=== PATIENT | male | born 1945 | race Caucasian/White ===

== ENCOUNTER 2017-05-14 08:03 | Outpatient (CLI) | payer MEDICARE ==
--- NOTE | 2017-05-14 11:32 | MRI ---
MRI CERVICLA SPINE WITHOUT CONTRAST: Date: 05/14/17 HISTORY: Cervical fusion. Spinal stenosis. Neck pain radiating down the right arm x2 months. COMPARISON: 04/03/14. TECHNIQUE: MRI cervical spine is performed without intravenous Gadolinium administration. Multisequential, multi planar imaging is performed. FINDINGS: Appropriate T1 marrow signal intensity of the cervical vertebra. Cervical spine vertebral body height is maintained. No fracture. Straightening of normal cervical lordosis due to patient positioning is noted. No MRI evidence of ligamentous injury. Visualized brain parenchyma, cervicomedullary junction, cervical cord, and the upper thoracic cord andrade ve a normal size and signal intensity. 1.2 x 0.8 cm T2 hyperintensity in the expected region of the right thyroid lobe. There is an addition al T2 hyperintensity in the right neck anterior to the carotid artery measuring 1.6 x 1.4 cm. The les ion anterior to the right carotid artery appears to have been present on the prior examination. C2-C3: No significant disc osteophyte complex. No significant central canal stenosis. Neural foramina are pa tent. C3-C4: Broad based disc osteophyte complex abuts the thecal sac. No significant central canal stenosis. Dege nerative changes bilateral vertebral joints and bilateral facet hypertrophy results in moderate to se anita bilateral foraminal narrowing. C4-C5: Broad based osteophyte ridge with a small left paracentral component. No significant central canal st enosis. Right neural and left neural foramen are patent. C5-C6: Broad based disc osteophyte ridge abuts the thecal sac. Mild central canal stenosis. Degenerative nicci nges in bilateral vertebral joints result in moderate bilateral foraminal narrowing. C6-C7: There is a broad based osteophyte ridge that abuts the thecal sac. Ventral subarachnoid space is effa kwan. Minimal flattening of the ventral cord. Mild central canal stenosis. No T2 hyperintensity in the cord. Mild bilateral foraminal narrowing. C7-T1: No significant disc osteophyte complex. No significant central canal stenosis. Mild bilateral foramin al narrowing. IMPRESSION: 1. Degenerative changes of the cervical spine as above. 2. T2 hyperintensity in the right neck. The possibility of a nonspecific cystic lesion, as well as a cystic lesion within the right thyroid lobe are suspected. Further evaluation with a thyroid ultraso und is recommended. POS: [facility]
== END 2017-05-14 08:04 | disposition home or self-care (01) ==
LOC: SCSMRI 08:03
PROVIDERS: ATTEND Anesthesiology Pain Medicine
DX: M48.02 Spinal stenosis, cervical region (principal); M47.892 Other spondylosis, cervical region; M89.8X8 Other specified disorders of bone, other site
CPT/HCPCS: 72141

== ENCOUNTER 2017-07-06 13:59 | Outpatient (CLI) | payer MEDICARE ==
--- NOTE | 2017-07-06 14:57 | RAD ---
SUPINE ABDOMEN: INDICATION: Recurrent kidney stones. Renal cysts. COMPARISON: Correlation is made to abdominal film of 10/22/16. FINDINGS: Tiny calcification overlying the upper pole of the left kidney is again seen. There is also a small calcific density overlying the upper pole of the right kidney measuring in the 2-3 mm range. There i s bowel content overlying the right kidney, and this could potentially represent bowel content. No other urinary tract calcification identified. Phlebolith calcifications in the peripheral pelvis are unchanged. IMPRESSION: Tiny calcifications overlie the upper poles of both kidneys. Overlying bowel content obscures detail . POS: [facility]
--- NOTE | 2017-07-06 15:05 | ULT ---
RENAL ULTRASOUND: INDICATION: Kidney stones. Renal cysts. COMPARISON: Comparison is made to renal ultrasound exam dated 07/23/16. FINDINGS: The large cyst inferior pole right kidney is again noted. This cyst measures up to 8 cm and is uncha nged in appearance from the prior study. The right kidney is otherwise unremarkable. No hydronephro sis. The right kidney is measured at 12 cm length. The left kidney appears unremarkable and measures 12.7 cm length. Bladder is mildly distended and ap pears unremarkable. Tiny echogenic foci seen in both kidneys would be consistent with small renal calculi which were also confirmed on a CT of 10/15/16. IMPRESSION: 1. Large cyst inferior pole right kidney appears stable by ultrasound. 2. Evidence of tiny renal calculi which were better seen on prior CT. 3. Renal ultrasound otherwise unremarkable. POS: [facility]
== END 2017-07-06 14:00 | disposition home or self-care (01) ==
LOC: SCSULT 13:59
PROVIDERS: ATTEND Urology
DX: Z12.5 Encounter for screening for malignant neoplasm of prostate (principal); N20.0 Calculus of kidney; N28.1 Cyst of kidney, acquired; N40.0 Benign prostatic hyperplasia without lower urinary tract symptoms
CPT/HCPCS: 36415; 74018; 76770; 80048; 80076; 81001; 84270; 84403; 85014; 85018; 87086; G0103

== ENCOUNTER 2017-10-09 08:47 | Outpatient (CLI) | payer MEDICARE ==
--- NOTE | 2017-10-09 11:01 | MRI ---
MRI LUMBAR SPINE NONCONTRAST: History: Low back pain. Radiculopathy, right greater than left. FINDINGS: Images including the retroperitoneum show large cysts projecting from the cortex of the right kidney. The conus medullaris has a normal appearance. Desiccation of all of the intervertebral discs with Sc hmorl's nodes and discogenic endplate changes. Degenerative changes are partially visualized, lower l umbar spine. T12-L1: Osteophytosis. Central canal and neural foramina are patent. L1-2: Disc space narrowing. Posterior disc bulge and circumferential degenerative changes. Mild steno sis of the central canal and each neural foramen. L2-3: Mild disc space narrowing. Posterior disc bulge and circumferential degenerative changes with m oderate stenosis of the central canal and mild to moderate stenosis of each neural foramen. L3-4: Disc space narrowing. Posterior disc bulge and circumferential degenerative changes with mild s tenosis of the central canal and moderate stenosis of each neural foramen. L4-5: Disc space narrowing. Posterior disc bulge and circumferential degenerative changes with modera te stenosis of the central canal and severe stenosis of each neural martínez. L5-S1: Posterior disc bulge. Thecal sac remains patent. Degenerative changes with moderate bilateral foraminal stenosis, left greater than right. IMPRESSION: Prominent multilevel degenerative changes throughout the lumbar spine as detailed above. Stenoses are most severe at each neural foramen at the L4-5 level. Clinical correlation regarding each L4 dermato me is required. POS: [facility]
== END 2017-10-09 08:48 | disposition home or self-care (01) ==
LOC: TBSIIMAG 08:47
PROVIDERS: ATTEND Surgery
DX: M47.27 Other spondylosis with radiculopathy, lumbosacral region (principal); M47.26 Other spondylosis with radiculopathy, lumbar region; M99.83 Other biomechanical lesions of lumbar region
CPT/HCPCS: 72148

== ENCOUNTER 2017-11-12 15:24 | Outpatient (CLI) | payer MEDICARE ==
[2017-11-12 16:17] LABS: Hemoglobin 14.6 g/dL (14.0-18.0); Mean Corpuscular HGB CONC 35.2 g/dL (32.0-36.0); Mean Corpuscular Hemoglobin 31.5 pg (27.0-31.0); Mean Corpuscular Volume 89.3 fL (78.0-98.0); Mean Platelet Volume 9.5 fL (7.4-10.4); Platelet Count 144 thou/uL (130-400); RBC Distribution Width 12.7 % (11.5-14.5); Red Blood Cell (RBC) Count 4.63 mill/uL (4.70-6.10); White Blood Cell (WBC) Count 8.1 thou/uL (4.8-10.8)
[2017-11-12 16:21] LABS: INR-International Normal Ratio 1.1; Prothrombin Time 14.6 SEC (12.0-14.7)
[2017-11-12 16:22] LABS: PTT 29.7 SEC (22.9-36.1)
[2017-11-12 16:38] LABS: Anion Gap 12 mmol/L (10-20); BUN (Urea Nitrogen) 21 mg/dL (8.4-25.7); Calc. Creatinine Clearance 0 mL/min (70-130); Calcium 9.2 mg/dL (7.8-10.44); Carbon Dioxide 29 mmol/L (23-31); Chloride 105 mmol/L (98-107); Estimated GFR-MDRD 83; Glucose 178 mg/dL (83-110); Potassium 3.9 mmol/L (3.5-5.1); Sodium 142 mmol/L (136-145)
== END 2017-11-12 15:25 | disposition home or self-care (01) ==
LOC: LABBT 15:24
PROVIDERS: ATTEND Surgery
DX: Z01.818 Encounter for other preprocedural examination (principal); M48.061 Spinal stenosis, lumbar region without neurogenic claudication; M54.16 Radiculopathy, lumbar region
CPT/HCPCS: 80048; 85027; 85610; 85730; 93005; 93010

== ENCOUNTER 2017-11-19 09:43 | Day surgery (SDC) | payer MEDICARE ==
[2017-11-12 16:09] VITALS: BMI 28.7
[2017-11-19] MEDS ORDERED: Clindamycin/D5W 900 mg/50 ml Premix Bag ONE ×2 (10:14→18:35)
[2017-11-19] MEDS ORDERED: Levofloxacin 500 mg/D5W 100 ml Premix Bag ONE (10:15)
[2017-11-19] MEDS ORDERED: Sodium Chloride 0.9% 10 ML ONE (10:29)
[2017-11-19] MEDS ORDERED: Thrombin 5000 UNITS/5 ML VIAL ONE ×2 (10:29→13:52)
[2017-11-19] MEDS ORDERED: Bacitracin Zinc Ointment 30 gm TUBE ONE (10:32)
[2017-11-19] MEDS ORDERED: Midazolam HCl 2 mg/2 ml Vial ONE (10:59)
[2017-11-19] MEDS ORDERED: Fentanyl 100 MCG/2 ML VIAL ONE ×3 (12:00→16:00)
[2017-11-19] MEDS ORDERED: Fentanyl 250 MCG/5 ML VIAL ONE (12:37)
[2017-11-19] MEDS ORDERED: PHENYLEPHRINE-NS 100 MCG/ML 10 ML SYRINGE ONE ×2 (13:35→14:52)
[2017-11-19] MEDS ORDERED: Promethazine HCl 25 MG/ML VIAL SLOW IVP PRN (13:51)
[2017-11-19] MEDS ORDERED: Meperidine HCl/PF 25 MG/ML VIAL SLOW IVP PRN (13:51)
[2017-11-19] MEDS ORDERED: Ondansetron HCl/PF 4 MG/2 ML Vial IVP PRN (13:51)
[2017-11-19] MEDS ORDERED: PROPOFOL 200 MG/20 ML VIAL ONE (14:52)
[2017-11-19] MEDS ORDERED: Dexamethasone 20 MG/5 ML VIAL ONE (14:52)
[2017-11-19] MEDS ORDERED: Ondansetron HCl/PF 4 MG/2 ML Vial ONE (14:52)
[2017-11-19] MEDS ORDERED: ePHEDrine/0.9% NaCl/PF SYRINGE 50 mg/10 ml ONE (14:52)
[2017-11-19] MEDS ORDERED: Ketorolac Tromethamine 30 MG/ML VIAL ONE (14:52)
[2017-11-19] MEDS ORDERED: Lidocaine 1% PF 5 ML VIAL ONE (14:52)
[2017-11-19] MEDS ORDERED: Promethazine HCl 25 MG/ML VIAL IM PRN (15:12)
[2017-11-19] MEDS ORDERED: Milk Of Magnesia 30 ML UDCUP PO PRN (15:12)
[2017-11-19] MEDS ORDERED: traMADol HCl 50 MG TAB PO PRN (15:12)
[2017-11-19] MEDS ORDERED: Bisacodyl 10 MG SUPP PR PRN (15:12)
[2017-11-19] MEDS ORDERED: Mag-Al 1200 mg/1200 mg/30 ML UDCUP PO PRN (15:12)
[2017-11-19] MEDS ORDERED: Acetaminophen 325 MG TAB PO PRN (15:12)
[2017-11-19] MEDS ORDERED: Fleet Enema 133 ML BOT PR PRN (15:12)
[2017-11-19] MEDS ORDERED: HYDROmorphone 2 MG/ML VIAL ONE ×2 (15:26→17:03)
[2017-11-19] MEDS: Clindamycin/D5W 900 MG in Premix Bag 1 BAG IVPB SCH (20:07)
[2017-11-19] MEDS: Gabapentin 300 MG CAP PO SCH (20:52)
[2017-11-19] MEDS: HYDROcodone/Acetaminophen 7.5/325 mg Tablet PO PRN (20:52)
[2017-11-19] MEDS: tiZANidine HCl 4 MG TAB PO PRN (20:52)
[2017-11-19] MEDS ORDERED: traZODone HCl 150 MG TAB PO SCH (21:00)
[2017-11-19] MEDS ORDERED: TRAZODONE HCL 300 MG PO SCH (21:00)
[2017-11-19] MEDS ORDERED: Zolpidem Tartrate 5 MG TAB PO SCH (21:00)
[2017-11-19] MEDS: Primidone 50 MG TAB PO SCH (21:58)
[2017-11-19] MEDS: Sodium Chloride 0.9% 1,000 ML IV SCH (23:04)
[2017-11-20] MEDS: HYDROcodone/Acetaminophen 7.5/325 mg Tablet PO PRN ×3 (00:42→12:41)
[2017-11-20] MEDS: Clindamycin/D5W 900 MG in Premix Bag 1 BAG IVPB SCH (01:24)
[2017-11-20] MEDS ORDERED: diphenhydrAMINE 50 MG/ML VIAL IVP SCH (03:30)
[2017-11-20] MEDS ORDERED: Levothyroxine Sodium 50 MCG TAB PO SCH (06:00)
[2017-11-20] MEDS: Sodium Chloride 0.9% 1,000 ML IV SCH (07:50)
[2017-11-20] MEDS ORDERED: Glimepiride 2 MG TAB PO SCH (08:00)
[2017-11-20] MEDS: Gabapentin 300 MG CAP PO SCH (08:41)
[2017-11-20] MEDS: Primidone 50 MG TAB PO SCH (08:41)
[2017-11-20] MEDS: tiZANidine HCl 4 MG TAB PO PRN (08:46)
[2017-11-20] MEDS ORDERED: (Vortioxetine Hydrobromide [Trintellix] 20 MG) PO SCH (09:00)
[2017-11-20] MEDS ORDERED: Loratadine/Pseudoephedrine 10/240 mg Tablet PO SCH (09:00)
[2017-11-20] MEDS ORDERED: Prevnar 13-Val Conj/PF 0.5 ML SYRINGE IM ONE (09:00)
[2017-11-20] MEDS ORDERED: (Vortioxetine Hydrobromide [Trintellix] 10 MG) PO SCH (09:00)
[2017-11-20] MEDS ORDERED: Folic Acid 1 MG TAB PO SCH (09:00)
[2017-11-20] MEDS ORDERED: Amlodipine 5 MG TAB PO SCH (09:00)
[2017-11-20] MEDS ORDERED: Tamsulosin HCl 0.4 MG CAP PO SCH (09:00)
[2017-11-20 12:26] VITALS: BP 96/58; TEMP 97.9
[2017-11-20] MEDS: TESTOSTERONE TOP SCH (13:48)
--- NOTE | 2017-11-20 15:27 | PRG ---
DATE OF SERVICE: 11/20/2017 Mr. Kenyon is postoperative day 1 from L2-L5 laminectomy. He has had improvement in his leg pain. Th e issue we are facing at this point is to control a muscle spasm and perioperative site pain. Anthony thornton work on this. Should he continue to do well and meet criteria, we will plan dismissal.
--- NOTE | 2017-11-20 16:43 | OP ---
DATE OF SURGERY: 11/19/2017 WOUND TYPE: Type 1 wound. SURGEON: Serafin Britton M.D. INTERNATIONAL PROJECT MANAGER: Moreno Adler PA-C. PREPROCEDURE DIAGNOSIS: Multilevel lumbar stenosis with low back and leg pain. POSTPROCEDURE DIAGNOSIS: Multilevel lumbar stenosis with low back and leg pain. PROCEDURES: L2-L3, L3-L4, L4-L5 laminectomies, partial facetectomies, foraminotomies, L2, L3, L4, L5 nerve roots. DESCRIPTION OF PROCEDURE: After informed consent was obtained from the patient, the patient was brou ght to OR. Proper patient pause and identification was carried out. He was placed in excellent endo tracheal anesthesia and positioned prone on the OR table. All appropriate points were padded. We id entified the L2, L3, L4, L5 dorsal spines. A linear teressa was made over this region. This area was s terilely cleansed, prepared and draped. Proper patient pause and identification was carried out. Th e wound was then opened with a combination of sharp, monopolar and blunt dissection. The L2, L3, L4, L5 dorsal spines and lamina were exposed. Localization film confirmed our area of interest. We the n performed an L2, L3, L4, L5 laminectomies, partial facetectomies and foraminotomies with excellent decompression of the common dural tube and the L2, L3, L4, L5 nerve roots. Copious irrigation occurr ed throughout as did maximizing hemostasis. The wound was then closed in anatomic layers followed by sprinkling of vancomycin powder. The patient then emerged from anesthesia.
== END 2017-11-20 13:12 | disposition home or self-care (01) ==
LOC: SDC 09:43 → SURG A 17:56 → SDC 11-20 13:12
PROVIDERS: ATTEND Surgery
PROC: 01NB0ZZ Release Lumbar Nerve, Open Approach (ICD-10-PCS; principal; 2017-11-19)
DX: M48.061 Spinal stenosis, lumbar region without neurogenic claudication (principal); M54.16 Radiculopathy, lumbar region; I10 Essential (primary) hypertension; E11.9 Type 2 diabetes mellitus without complications; K21.9 Gastro-esophageal reflux disease without esophagitis; K58.9 Irritable bowel syndrome, unspecified; F41.8 Other specified anxiety disorders; G62.9 Polyneuropathy, unspecified; Z79.82 Long term (current) use of aspirin; Z79.899 Other long term (current) drug therapy; Z88.0 Allergy status to penicillin; Z88.8 Allergy status to other drugs, medicaments and biological substances
CPT/HCPCS: 36416; 76001; 90471; 90670; A4216; G0009; J0131; J1100; J1170; J1885; J1956; J2001; J2250; J2270; J2405; J2704; J3010; J3370; J3490

== ENCOUNTER 2018-02-23 19:06 | Emergency (ER) | payer MEDICARE ==
[2018-02-23 19:52] LABS: #Eosinphils 0.3 thou/uL (0.0-0.7); #Lymphocytes 1.8 thou/uL (1.20-3.40); #Neutrophils 8.1 thou/uL (1.40-6.50); %Basophils 0.2 % (0.0-1.0); %Eosinophils 2.4 % (0.0-10.0); %Lymphocytes 15.8 % (21.0-51.0); %Monocytes 8.6 % (0.0-10.0); Hemoglobin 14.1 g/dL (14.0-18.0); Mean Corpuscular HGB CONC 33.8 g/dL (32.0-36.0); Mean Corpuscular Hemoglobin 29.7 pg (27.0-31.0); Mean Corpuscular Volume 87.7 fL (78.0-98.0); Mean Platelet Volume 9.7 fL (7.4-10.4); Platelet Count 172 thou/uL (130-400); RBC Distribution Width 12.3 % (11.5-14.5); Red Blood Cell (RBC) Count 4.74 mill/uL (4.70-6.10)
[2018-02-23 20:15] LABS: Anion Gap 12 mmol/L (10-20); BUN (Urea Nitrogen) 14 mg/dL (8.4-25.7); Calc. Creatinine Clearance 0 mL/min (70-130); Calcium 9.6 mg/dL (7.8-10.44); Carbon Dioxide 28 mmol/L (23-31); Chloride 98 mmol/L (98-107); Estimated GFR-MDRD 70; Glucose 528 mg/dL (83-110); Sodium 134 mmol/L (136-145)
[2018-02-23] MEDS ORDERED: Lidocaine 4% Cream 5 GM TUBE w/ Tegaderm ONE (21:53)
[2018-02-23] MEDS ORDERED: Clindamycin 150 MG CAP PO SCH (23:45)
== END 2018-02-24 00:18 | disposition home or self-care (01) ==
LOC: ERS 19:06
DX: E11.65 Type 2 diabetes mellitus with hyperglycemia (principal); J32.9 Chronic sinusitis, unspecified; E11.40 Type 2 diabetes mellitus with diabetic neuropathy, unspecified; I10 Essential (primary) hypertension; F41.9 Anxiety disorder, unspecified; F32.9 Major depressive disorder, single episode, unspecified
CPT/HCPCS: 10060; 36416; 80048; 85025; 96360; 96361

== ENCOUNTER 2018-03-17 10:33 | Emergency (ER) | payer MEDICARE ==
--- NOTE | 2018-03-17 11:48 | RAD ---
RIGHT CLAVICLE TWO VIEWS: HISTORY: Pain. COMPARISON: MRI from 07/20/2017. FINDINGS: There appears to be a prior acromioplasty. There is also distal clavicular osteolysis. There is oss ification along the acromioclavicular ligaments. These are unchanged findings. There is also some o ssification in the coracoclavicular ligament. IMPRESSION: Chronic findings. No acute abnormality. POS: [facility]
--- NOTE | 2018-03-17 12:23 | RAD ---
PORTABLE UPRIGHT FRONTAL CHEST RADIOGRAPH: 03/17/2018 HISTORY: Fall. COMPARISON: None. FINDINGS: There is marked widening of the acromioclavicular interspace on the right. There is also widening of the right coracoclavicular interspace. These findings suggest a grade 3 AC joint injury, possibly a cute. Clinical correlation is essential. There is cervical spine postoperative hardware. There is no pneumothorax or pleural fluid and no foc al consolidation or alveolar edema. IMPRESSION: Age indeterminate, possibly acute, grade 3 acromioclavicular joint injury on the right. Clinical cor relation is required. POS: [facility]
== END 2018-03-17 12:07 | disposition home or self-care (01) ==
LOC: ERS 10:33
DX: S43.101A Unspecified dislocation of right acromioclavicular joint, initial encounter (principal); G47.30 Sleep apnea, unspecified; E11.40 Type 2 diabetes mellitus with diabetic neuropathy, unspecified; I10 Essential (primary) hypertension; F41.9 Anxiety disorder, unspecified; F32.9 Major depressive disorder, single episode, unspecified; W19.XXXA Unspecified fall, initial encounter
CPT/HCPCS: 71045

== ENCOUNTER 2018-04-21 08:56 | Outpatient (CLI) | payer MEDICARE ==
--- NOTE | 2018-04-21 12:07 | ULT ---
ULTRASOUND OF RIGHT ELBOW: History: Evaluation for biceps tendon tear. The patient was unable to undergo MR study. FINDINGS: Real-time imaging of the distal biceps tendon was performed. The tendon was identified. It is slightl y thickened in appearance but it appears to have a normal attachment on the radial tuberosity. No sig ns of any complete tear. I do not see any fluid or edema change in this area. Imaging was also perfor med to the myotendinous area and I do not see any definite fluid or other signs of acute injury in th is area. IMPRESSION: Mildly thickened but intact appearing distal biceps tendon. POS: [facility]
== END 2018-04-21 08:57 | disposition home or self-care (01) ==
LOC: SCSULT 08:56
PROVIDERS: ATTEND Orthopaedic Surgery Hand Surgery
DX: S46.211A Strain of muscle, fascia and tendon of other parts of biceps, right arm, initial encounter (principal)
CPT/HCPCS: 76999

== ENCOUNTER 2018-05-13 15:33 | Outpatient (CLI) | payer MEDICARE ==
[2018-05-13 16:21] LABS: Estimated GFR-MDRD - POC Greater than 90
--- NOTE | 2018-05-13 17:46 | RAD ---
FOUR VIEWS LUMBAR SPINE INCLUDING AP, LATERAL, FLEXION AND EXTENSION VIEWS LUMBAR SPINE: 05/13/18 HISTORY: Back pain for four months. Four views lumbar spine demonstrate four nonribbearing lumbar type vertebrae. Disc space height loss is seen at L1-2, L2-3, L3-4 and L4-5. Vacuum disc changes also seen at L3-4. Extensive anterior osteo phytes seen. No evidence of acute fractures or bony lesions seen. IMPRESSION: Multilevel lumbar changes of spondylosis. No acute lumbar spine abnormality seen. The patient has had previous laminectomies involving the L3, L4 and L5 levels. POS: [facility]
--- NOTE | 2018-05-13 18:12 | MRI ---
PRE AND POSTCONTRAST ENHANCED MRI IMAGES LUMBAR SPINE: 05/13/18 COMPARISON: Comparison made to previous exam of noncontrast enhanced MRI images of the lumbar spine from 10/09/17. Multiplanar, multisequence pre and postcontrast enhanced MRI images lumbar spine obtained. The patient also received a total of 19 mL of Multihance given IV. Pre and postcontrast enhanced MRI images of the lumbar spine obtained. RADIOGRAPHIC FINDINGS: T12-L1: There is facet and ligamentum flavum hypertrophy. No significant degree of central or neural foraminal narrowing seen. L1-2: Some disc desiccation seen. There is a broad based disc bulge with bilateral facet and ligament um flavum hypertrophy. This results in mild central and lateral recess stenosis. This has not signifi cantly changed since the previous exam. L2-3: There is disc desiccation seen. There is a broad based disc bulge with bilateral facet hypertro phy. The patient has had previous L3 laminotomy changes. The central canal is patent. L3-4: The patient has had a previous L3 and L4 laminotomies. The L3-4 central canal is patent, slight ly increased AP diameter compared to the predecompression exam from 10/09/17. No significant degree of central stenosis seen. The neural foramen is patent. The patient has had extensive posterior postoperative surgical enhancement extending from the posteri or aspect of the L3, L4, and L5 levels. L4-5: Disc desiccation seen. There is a broad based disc bulge with bilateral facet hypertrophy. This does not result in a significant degree of central stenosis. There has been an interval posterior de compression with increased diameter of the spinal canal. There is moderate bilateral neural foraminal narrowing at L4-5 due to facet hypertrophic changes. L5-S1: Bilateral facet hypertrophy is seen. No significant degree of central stenosis seen. Moderate bilateral neural foraminal narrowing seen. Incidentally noted large right renal cortical cyst or cystic lesion is present unchanged since the exam. IMPRESSION: Multilevel lower lumbar laminotomy changes with decompression of the L3-4 and L4-5 central spinal lev els. No evidence of recurrent disc herniations or increasing neural foraminal narrowing seen. previou s areas of neural foraminal narrowing in the lower lumbar region are unchanged. POS: [facility]
== END 2018-05-13 15:34 | disposition home or self-care (01) ==
LOC: SCSMRI 15:33
PROVIDERS: ATTEND Surgery
DX: M54.16 Radiculopathy, lumbar region (principal); M48.061 Spinal stenosis, lumbar region without neurogenic claudication; M47.26 Other spondylosis with radiculopathy, lumbar region; Z98.890 Other specified postprocedural states
CPT/HCPCS: 72120; 72158; 82565

== ENCOUNTER 2018-05-21 11:12 | Day surgery (SDC) | payer MEDICARE ==
[2018-05-20 16:42] VITALS: BMI 28.5
[2018-05-21] MEDS ORDERED: Fentanyl 100 MCG/2 ML VIAL ONE (12:09)
[2018-05-21] MEDS ORDERED: Midazolam HCl 2 mg/2 ml Vial ONE (12:28)
--- NOTE | 2018-05-21 14:17 | MRI ---
MRI RIGHT ELBOW WITH AND WITHOUT CONTRAST: HISTORY: M75.21, biceps tendinitis of the right upper extremity. S46.219A, biceps tendon tear. COMPARISON: None. FINDINGS: The exam was done as a mass protocol and not an internal derangement protocol. No solid mass is appr eciated. Mild tendinosis of the biceps tendon. No bicipital or radial bursitis. Bones: No fracture. No malalignment. No marrow edema. No marrow infiltrative process. The triceps tendon is intact. Muscle signal and bulk are normal. Large cyst, inferior pole, right kidney. Mild lateral epicondylitis and low-grade thickening of the common extensor tendon. IMPRESSION: 1. Low-grade tendinosis of the biceps tendon without tear. 2. No bicipital or radial bursitis. 3. Mild lateral epicondylitis. 4. Nonenhancing cyst, inferior pole, right kidney. POS: [facility]
== END 2018-05-21 14:35 | disposition home or self-care (01) ==
LOC: SDC/OP 11:12
PROVIDERS: ATTEND Orthopaedic Surgery Hand Surgery
DX: M75.21 Bicipital tendinitis, right shoulder (principal); M77.11 Lateral epicondylitis, right elbow; G56.21 Lesion of ulnar nerve, right upper limb; S46.819A Strain of other muscles, fascia and tendons at shoulder and upper arm level, unspecified arm, initial encounter; E11.9 Type 2 diabetes mellitus without complications; F32.9 Major depressive disorder, single episode, unspecified; N52.9 Male erectile dysfunction, unspecified; Z79.82 Long term (current) use of aspirin; Z79.84 Long term (current) use of oral hypoglycemic drugs; Z79.899 Other long term (current) drug therapy; Z88.0 Allergy status to penicillin
CPT/HCPCS: 93005; 93010; J2250; J3010

== ENCOUNTER 2018-06-08 06:41 | Day surgery (SDC) | payer MEDICARE ==
[2018-06-07 11:28] VITALS: BMI 28.5
[2018-06-08] MEDS ORDERED: Bacitracin Zinc Ointment 30 gm TUBE ONE (08:12)
[2018-06-08] MEDS ORDERED: Bupivacaine PF 0.5% 30 ML VIAL ONE ×2 (08:12→10:49)
[2018-06-08] MEDS ORDERED: Sodium Chloride 0.9% 10 ML ONE (08:12)
[2018-06-08] MEDS ORDERED: Betamet Acet/Betamet Na Ph 30 MG/5 ML VIAL ONE ×2 (08:12→09:05)
[2018-06-08] MEDS ORDERED: Fentanyl 100 MCG/2 ML VIAL ONE (08:25)
[2018-06-08] MEDS ORDERED: Midazolam HCl 2 mg/2 ml Vial ONE (08:26)
[2018-06-08] MEDS ORDERED: Ketorolac Tromethamine 30 MG/ML VIAL ONE (11:28)
[2018-06-08] MEDS ORDERED: PROPOFOL 200 MG/20 ML VIAL ONE (12:48)
[2018-06-08] MEDS ORDERED: PHENYLEPHRINE-NS 100 MCG/ML 10 ML SYRINGE ONE (12:48)
[2018-06-08] MEDS ORDERED: Lidocaine 1% PF 5 ML VIAL ONE (12:48)
[2018-06-08] MEDS ORDERED: Ondansetron PF 4 MG/2 ML Vial ONE (12:48)
[2018-06-08] MEDS ORDERED: HYDROcodone/Acetaminophen 5/325 mg Tablet ONE (12:58)
--- NOTE | 2018-06-08 23:16 | OP ---
DATE OF PROCEDURE: 06/08/2018 PREOPERATIVE DIAGNOSES: 1. Right olecranon bursitis. 2. Right lateral epicondylitis. 3. Right biceps tendon muscle area pain, mid muscle belly. 4. 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 POSTOPERATIVE DIAGNOSES: 1. Right olecranon bursitis. 2. Right lateral epicondylitis. 3. Right biceps tendon muscle area pain, mid muscle belly. 4. 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 FINDINGS: Very tight constriction and scarring of the ulnar nerve at the two heads of the flexor tendon origin, within the cubital tunnel with scarring persists from the previous surgery; once we passed the cubital tunnel, began against the intermuscular septum and high at the intermuscular septum was compressed again. Hourglass formation was seen in three of these four sites, greatest at the old scar of the cubital tunnel. PROCEDURES PERFORMED: 1. Right biceps muscle belly biopsy. 2. Right biceps tendon injection with 2 of Celestone and 1 of Marcaine, right lateral epicondylitis injection with 2 of Celestone and 1 of Marcaine. 3. Right radical olecranon bursectomy. 4. Right submuscular ulnar nerve transposition after radial nerve release at the site listed above. SPECIMENS: Sent to the lab, bursitis/thickened olecranon bursa. TOURNIQUET TIME: 9 minutes. ESTIMATED BLOOD LOSS: Less than or equal to 20 mL. INDICATION: The patient had pain marked in lateral epicondyle without evidence of radial tunnel syndrome, marked tenderness over point in the midportion of biceps muscle distal 1/3 and marked tenderness over the biceps tendon as it entered into antecubital fossa. He had a positive MRI showing no abnormalities of the biceps muscle or tendon junction except for mild tendinosis at the level of his exam tenderness, lateral epicondylitis that was moderate without a rupture, and he had previous cubital tunnel diagnosis on the EMG, did not resolve with conservative care. DESCRIPTION OF PROCEDURE: After successful general LMA technique, the limb was prepped and draped. The patient had the time-out done appropriately and then identified the areas. His arm was prepped including the entire lateral chest wall, and note, sterile tourniquet will be applied, but first, we performed the injection in the two sites, first the biceps tendon, we identified the tendon, made sure we could identify where the pulse was located and stay way from that. I entered the tendon proper and then once we felt some resistance, we withdrew the syringe following the blood, so we injected the solution. The pulse did not diminish. We then identified the anterior portion of the lateral epicondyle. The patient was most tender preop and in clinic, gave the injection here, divided in equal between this site and the direct mid-lateral site, and this will hopefully give him much relief. We then placed the sterile tourniquet high in the arm above the area. We identified where the biceps muscle was tender, made a zigzag 2 cm incision of the biceps muscle slightly more lateral than medial, dissected down to the junction of the brachialis and biceps tendon, and we saw some scarring in this area consistent with hypertrophic fascia, which we excised and sent to lab. We also saw some thickened muscle underneath this, which we excised and sent to lab. We deflated the tourniquet, and then injected the midline cubital tunnel incision with Marcaine 20 mL and then came back and closed the wound with the tourniquet deflated at the biopsy site with a running 4-0 Monocryl and interrupted 4-0 nylon. Specimens were then sent to lab during this time. We exsanguinated the limb with approximately 7 minutes of deflation time, and then, at this time, inflated to 250 mmHg pressure, began with the arm abduct and the elbow flexed, and using a burn pack for stability, the incision through the cubital tunnel. It was normal in the midline, distal to the olecranon prominence, went medial by 5 mm to avoid electrolyte problems and back midline. We then carried the skin, subcutaneous tissue, some very thick olecranon bursa, and then slowly this from the ulnar nerve to the lateral gutter. We then removed the lateral gutter base and protected all the nerve and its antebrachial cutaneous associated flexor branches. We identified the branch protected them throughout the entire dissection during this time, and then we have identified the ulnar nerve approximately 8 cm proximal to the olecranon tip. We then dissected proximally another 5 cm and then began to separate the ulnar where there was very tight. On constriction of the fascia against the triceps on the intermuscular septum at the carpal point, very tight with intermuscular septum inserted, very tight in the cubital tunnel remnant, and then very tight adductor at the two heads of the flexor tendons. We then performed enough dissection to free the nerve, this included the use of DeBakey because of the tight tunnel. Once the tunnel was free, we then removed the intermuscular septum over 8 cm area and protected all nerve completed easily it could be translocated over the medial condyle into the middle of the flexor pronator group origin. The nerve was freed along with the blood vessel, all scar was removed, we then made a Z-plasty with the longus limb being the limb just over the cubital tunnel of the flexor pronator origin, translocated this, and then placed the nerve in the defect. We gently closed the musculotendinous junction area over the nerve. After placing 4 mL to 5 mL of Celestone, closed the fat with interrupted [id number] #1 Ethibond. The nerve was easily all protected, did not show any evidence of constriction in full extension and full flexion. Tourniquet deflated. We obtained hemostasis. We then closed the incision for the cubital tunnel using a running 4-0 Monocryl. Then, over this, we placed Mastisol with Steri-Strips, dry, Adaptic, and 4x4s, Kerlix, and adapter Bacitracin over the biceps incision. He left operation with long-arm splint applied with the arm at -60 degrees from full extension. Previous procedure, long-arm splint application alone. Job ID: [id number]
== END 2018-06-08 13:20 | disposition home or self-care (01) ==
LOC: SDC 06:41
PROVIDERS: ATTEND Orthopaedic Surgery Hand Surgery
PROC: 3E0U33Z Introduction of Anti-inflammatory into Joints, Percutaneous Approach (ICD-10-PCS; principal; 2018-06-08)
PROC: 3E0U3BZ Introduction of Anesthetic Agent into Joints, Percutaneous Approach (ICD-10-PCS; 2018-06-08)
PROC: 3E0U3BZ Introduction of Anesthetic Agent into Joints, Percutaneous Approach (ICD-10-PCS; 2018-06-08)
PROC: 3E0U33Z Introduction of Anti-inflammatory into Joints, Percutaneous Approach (ICD-10-PCS; 2018-06-08)
PROC: 0KB70ZX Excision of Right Upper Arm Muscle, Open Approach, Diagnostic (ICD-10-PCS; 2018-06-08)
PROC: 01N40ZZ Release Ulnar Nerve, Open Approach (ICD-10-PCS; 2018-06-08)
PROC: 0MB30ZZ Excision of Right Elbow Bursa and Ligament, Open Approach (ICD-10-PCS; 2018-06-08)
DX: G56.21 Lesion of ulnar nerve, right upper limb (principal); M77.8 Other enthesopathies, not elsewhere classified; M77.11 Lateral epicondylitis, right elbow; M70.21 Olecranon bursitis, right elbow; I10 Essential (primary) hypertension; F32.9 Major depressive disorder, single episode, unspecified; F41.9 Anxiety disorder, unspecified; E11.40 Type 2 diabetes mellitus with diabetic neuropathy, unspecified; K21.9 Gastro-esophageal reflux disease without esophagitis; Z79.84 Long term (current) use of oral hypoglycemic drugs; Z79.82 Long term (current) use of aspirin; Z79.899 Other long term (current) drug therapy; Z88.0 Allergy status to penicillin
CPT/HCPCS: 88305; J0702; J1885; J2250; J3010; J3370; J3490; S0020

== ENCOUNTER 2018-07-21 08:05 | Outpatient (CLI) | payer MEDICARE ==
--- NOTE | 2018-07-21 08:42 | RAD ---
Abdomen one view HISTORY: Renal stones. Follow-up. COMPARISON: 07/06/2017. FINDINGS: Gas and stool throughout the colon and rectum. Partial obscuration of the renal outlines. A small rounded hyperdensities projecting over the superior pole the right kidney is unchanged. The hyperdensity projecting over the superior pole of the left kidney is not reliably demonstrated, altho ugh it could be obscured. Phleboliths over the pelvis are unchanged. Degenerative changes of the hips and lumbar spine. Postope rative changes lumbar spine. IMPRESSION: Small calcification over right upper renal pole is stable. The density previously seen ov er the superior pole of the left renal shadow is not evident on today's study. Possibly obscured or interval passage. Other findings are stable.
[2018-07-21 09:02] LABS: Hemoglobin 13.8 g/dL (14.0-18.0)
[2018-07-21 09:12] LABS: Anion Gap 12 mmol/L (10-20); BUN (Urea Nitrogen) 15 mg/dL (8.4-25.7); Calc. Creatinine Clearance 0 mL/min (70-130); Calcium 9.1 mg/dL (7.8-10.44); Carbon Dioxide 27 mmol/L (23-31); Chloride 106 mmol/L (98-107); Estimated GFR-MDRD Greater than 90; Glucose 136 mg/dL (83-110); Potassium 3.7 mmol/L (3.5-5.1); Sodium 141 mmol/L (136-145)
[2018-07-21 09:13] LABS: Bilirubin Negative (Negative); Blood, Urine Negative (Negative); Clarity Clear (Clear); Glucose, Urine (Dipstick) >=1000 mg/dL (Negative); Leukocyte Negative (Negative); Nitrite Negative (Negative); Protein, Urine (Dipstick) Negative (Neg-Trace); Urobilinogen 0.2 mg/dL (0.2-1.0)
--- NOTE | 2018-07-21 09:13 | ULT ---
BILATERAL RENAL ULTRASOUND: Date: 07/21/18 INDICATION: Urolithiasis. COMPARISON: 07/06/17. FINDINGS: The demonstrated left renal length is 14.8 cm and right renal length is 12.5 cm, demonstrating a slig ht size discrepancy. At the inferior aspect of the right kidney, there is a focus of decreased echogenicity nearing 7.0 cm in diameter, as was depicted on prior exam. No overt hydronephrosis. Discrete calculi of the kidneys are not well discerned on the basis of this exam, which is limited for purpose of detection of uroli thiasis. Urinary bladder is limited in distention. IMPRESSION: 1. Large cyst of the right kidney is redemonstrated and appears simple by morphology. 2. No overt hydronephrosis. 3. Size discrepancy of the kidneys as discussed above. 4. Discrete renal calculi are not well discerned on the basis of this exam. POS: [facility]
[2018-07-21 09:43] LABS: RBC/HPF None Seen HPF (0-3); WBC/HPF None Seen HPF (0-3)
[2018-07-21 09:44] LABS: Bacteria/HPF Rare-Few HPF (None Seen); Squamous Epithelial 0-3 HPF (0-3)
[2018-07-21 11:47] LABS: Albumin (w/Testosterone Panel) 3.9 g/dL
[2018-07-21 12:09] LABS: Sex Hormone Binding Globulin 26.8 nmol/L (11-78); Testosterone, Free 23.8 pg/mL (47-244); Testosterone, Total 109.9 ng/dL (221-716)
== END 2018-07-21 08:06 | disposition home or self-care (01) ==
LOC: SCSULT 08:05
PROVIDERS: ATTEND Urology
DX: N20.0 Calculus of kidney (principal); N28.1 Cyst of kidney, acquired
CPT/HCPCS: 36415; 74018; 76770; 80048; 81001; 82670; 84270; 84403; 85014; 85018; 87086; G0103

== ENCOUNTER 2018-11-09 08:45 | Outpatient (CLI) | payer MEDICARE ==
--- NOTE | 2018-11-09 10:14 | CT ---
ABDOMEN AND PELVIC CT SCAN WITHOUT IV CONTRAST: Date: 11/09/18 HISTORY: Recurrent kidney stones, right flank pain last week. COMPARISON: 10/15/16. FINDINGS: The lung bases show no acute process. Status post cholecystectomy. Mildly dilated common bile duct wi thout intrahepatic ductal dilatation. Pancreas, spleen, and adrenal glands are unremarkable. Nonobstr ucting bilateral renal calculi with some minimal bilateral perirenal stable fat stranding. Stable rig ht renal cyst. Small, fat-containing umbilical hernia, and bilateral inguinal hernias. Colonic divert iculosis, particularly of the sigmoid colon, without acute diverticulitis. No CT evidence for acute a ppendicitis. IMPRESSION: Bilateral nonobstructing renal calculi. No evidence for acute obstruction. Stable right renal cyst . No evidence for other significant acute process. POS: [facility]
== END 2018-11-09 08:46 | disposition home or self-care (01) ==
LOC: SCSCT 08:45
PROVIDERS: ATTEND Urology
DX: N20.0 Calculus of kidney (principal); R35.0 Frequency of micturition; N28.1 Cyst of kidney, acquired
CPT/HCPCS: 74176

== ENCOUNTER 2018-12-13 14:47 | Outpatient (CLI) | payer MEDICARE ==
[2018-12-13 15:16] LABS: Estimated GFR-MDRD - POC Greater than 90
--- NOTE | 2018-12-13 16:10 | MRI ---
MRI CERVICAL SPINE WITH AND WITHOUT CONTRAST: HISTORY: Cervical radiculopathy. Pain radiates down both shoulders. Worsening symptoms. COMPARISON: MRI cervical spine 09/04/2017. FINDINGS: Anterior fusion plate with transvertebral body screws at C4, C5, C6 and C7. There is associated meta llic susceptibility artifact. Fusion of the C4-C5, C5-C6 and C6-C7 disc spaces. Straightening of normal cervical lordosis. Spondylolisthesis: 3.6 mm of anterolisthesis of C3 upon C4. The visualized brain parenchyma, cervicomedullary junction, cervical cord and the upper thoracic cord have a normal size and signal intensity. Post contrast images: No abnormal enhancement with regards to the visualized brain parenchyma and sp inal cord. No abnormal enhancement with regards to the vertebral bodies. C2-C3: No significant central canal stenosis or significant neural foraminal narrowing. C3-C4: Broad-based disc osteophyte complex without significant central canal stenosis. Moderate to severe right and left neural foraminal narrowing due to uncovertebral and facet hypertrophy. C4-C5: Broad-based osteophyte ridge with a small left paracentral component. Mild central canal ralph nosis. Mild bilateral foraminal narrowing due to uncovertebral hypertrophy. C5-C6: Broad-based osteophyte ridge with a left paracentral component. Minimal contact upon the lef t hemicord without cord hyperintensity. Mild central canal stenosis. Mild right and moderate left foraminal narrowing due to uncovertebral hypertrophy. C6-C7: Broad-based osteophyte ridge abuts the thecal sac. Mild central canal stenosis. Mild bilate ral foraminal narrowing due to uncovertebral hypertrophy. C7-T1: No significant central canal stenosis. Mild right and left neural foraminal narrowing. IMPRESSION: 1. 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 There are lien barry degrees of central canal stenosis and foraminal narrowing. 2. Interval grade 1 anterolisthesis of C3 upon C4. Transcribed Date/Time: 12/13/2018 5:59 PM
== END 2018-12-13 14:48 | disposition home or self-care (01) ==
LOC: SCSMRI 14:47
PROVIDERS: ATTEND Pain Medicine Pain Medicine
DX: M47.27 Other spondylosis with radiculopathy, lumbosacral region (principal); M96.1 Postlaminectomy syndrome, not elsewhere classified; M48.02 Spinal stenosis, cervical region; M43.12 Spondylolisthesis, cervical region; M47.22 Other spondylosis with radiculopathy, cervical region; Z98.1 Arthrodesis status
CPT/HCPCS: 72156; 82565

== ENCOUNTER 2020-08-03 14:41 | Outpatient (CLI) | payer MEDICARE ==
[2020-08-03 16:28] LABS: Hemoglobin 14.3 g/dL (13.5-17.5); Mean Corpuscular HGB CONC 34.1 g/dL (32.0-36.0); Mean Corpuscular Hemoglobin 31.6 pg (27.0-33.0); Mean Corpuscular Volume 92.7 fl (81.2-95.1); Mean Platelet Volume 12.6 fl (7.4-10.4); Platelet Count 128 10x3/uL (150-450); RBC Distribution Width 13.2 % (11.5-14.5); Red Blood Cell (RBC) Count 4.52 10x6/uL (4.32-5.72); White Blood Cell (WBC) Count 10.2 10x3/uL (3.5-10.5)
[2020-08-03 16:42] LABS: Anion Gap 15 mmol/L (10-20); BUN (Urea Nitrogen) 19 mg/dL (8.4-25.7); Calc. Creatinine Clearance 0 mL/min (70-130); Calcium 8.9 mg/dL (7.8-10.44); Carbon Dioxide 26 mmol/L (23-31); Chloride 103 mmol/L (98-107); Glucose 345 mg/dL (83-110); PTT 26.6 sec (22.0-33.0); Prothrombin Time 11.5 sec (9.5-12.1); Sodium 140 mmol/L (136-145)
[2020-08-03 16:51] LABS: Bilirubin Neg (Negative); Blood, Urine Negative (Negative); Clarity Clear (Clear); Glucose, Urine (Dipstick) >=1000 mg/dL (Negative); Ketone, Urine Negative (Negative); Leukocyte Negative (Negative); Nitrite Negative (Negative); Protein, Urine (Dipstick) Negative (Neg-Trace); Urobilinogen Normal mg/dL (Less than 2)
[2020-08-03 18:23] LABS: Bacteria/HPF None Seen HPF (None Seen); RBC/HPF None Seen HPF (0-3); Squamous Epithelial None Seen HPF (0-3); WBC/HPF 0-3 HPF (0-3)
[2020-08-04 01:13] LABS: SARS-CoV-2 PCR by NAA Not Detected (NotDetected)
== END 2020-08-03 14:42 | disposition home or self-care (01) ==
LOC: LABBT 14:41
PROVIDERS: ATTEND Urology
DX: Z12.5 Encounter for screening for malignant neoplasm of prostate (principal); N20.0 Calculus of kidney; E29.1 Testicular hypofunction; E11.9 Type 2 diabetes mellitus without complications; N52.9 Male erectile dysfunction, unspecified; N40.1 Benign prostatic hyperplasia with lower urinary tract symptoms; R80.1 Persistent proteinuria, unspecified; R35.0 Frequency of micturition; N28.1 Cyst of kidney, acquired; E04.1 Nontoxic single thyroid nodule; E04.0 Nontoxic diffuse goiter; D49.7 Neoplasm of unspecified behavior of endocrine glands and other parts of nervous system
CPT/HCPCS: 80048; 81001; 85027; 85610; 85730; 87086; 93005; U0003; U0005; 87635; 93010

== ENCOUNTER 2020-08-08 06:13 | Day surgery (SDC) | payer MEDICARE ==
[2020-08-07 12:18] VITALS: BMI 29.5
[2020-08-08] MEDS ORDERED: Midazolam HCl 2 mg/2 ml Vial ONE (06:35)
[2020-08-08] MEDS ORDERED: Fentanyl 100 MCG/2 ML VIAL ONE (06:35)
[2020-08-08] MEDS ORDERED: Levofloxacin 500 mg/D5W 100 ml Premix Bag ONE (07:38)
[2020-08-08] MEDS ORDERED: PROPOFOL 200 MG/20 ML VIAL ONE (07:42)
[2020-08-08] MEDS ORDERED: Insulin Regular 300 UNITS/3 ML VIAL ONE (08:45)
[2020-08-08] MEDS ORDERED: Phenazopyridine HCl 100 MG TAB ONE (08:45)
[2020-08-08] MEDS ORDERED: HYDROcodone/Acetaminophen 5/325 mg Tablet ONE (08:57)
== END 2020-08-08 12:07 | disposition home or self-care (01) ==
LOC: SDC 06:13
PROVIDERS: ATTEND Urology
PROC: 0T7D8DZ Dilation of Urethra with Intraluminal Device, Via Natural or Artificial Opening Endoscopic (ICD-10-PCS; principal; 2020-08-08)
DX: N40.1 Benign prostatic hyperplasia with lower urinary tract symptoms (principal); N13.8 Other obstructive and reflux uropathy; R35.0 Frequency of micturition; R39.11 Hesitancy of micturition; E29.1 Testicular hypofunction; E11.40 Type 2 diabetes mellitus with diabetic neuropathy, unspecified; N52.9 Male erectile dysfunction, unspecified; N28.1 Cyst of kidney, acquired; I10 Essential (primary) hypertension; K21.9 Gastro-esophageal reflux disease without esophagitis; G89.29 Other chronic pain; M54.9 Dorsalgia, unspecified; Z79.01 Long term (current) use of anticoagulants; Z79.2 Long term (current) use of antibiotics; Z79.4 Long term (current) use of insulin; Z79.899 Other long term (current) drug therapy; Z88.0 Allergy status to penicillin; Z88.1 Allergy status to other antibiotic agents
CPT/HCPCS: 82962; C9740; 36416; J1815; J1956; J2250; J2704; J3010; L8699

== ENCOUNTER 2021-02-06 13:31 | Outpatient (CLI) | payer MEDICARE ==
[2021-02-06 16:43] LABS: Bacteria/HPF None Seen HPF (None Seen); Bilirubin Negative (Negative); Blood, Urine Negative (Negative); Clarity Clear (Clear); Glucose, Urine (Dipstick) Greater than 1000 mg/dL (Negative); Ketone, Urine Negative (Negative); Leukocyte Negative Leu/uL (Negative); Nitrite Negative (Negative); Protein, Urine (Dipstick) Negative (Neg-Trace); RBC/HPF 0-3 HPF (0-3); Specific Gravity, Urine 1.038 (1.002-1.036); Squamous Epithelial None Seen HPF (0-3); Urobilinogen Normal mg/dL (Less than 2); WBC/HPF 0-3 HPF (0-3); pH, Urine 5.5 (5.0-9.0)
[2021-02-06 16:48] LABS: Anion Gap 13 mmol/L (10-20); BUN (Urea Nitrogen) 18 mg/dL (8.4-25.7); Calc. Creatinine Clearance 0 mL/min (70-130); Calcium 9.3 mg/dL (7.8-10.44); Carbon Dioxide 31 mmol/L (23-31); Chloride 98 mmol/L (98-107); Potassium 4.4 mmol/L (3.5-5.1); Sodium 138 mmol/L (136-145)
[2021-02-06 17:18] LABS: Glucose 579 mg/dL (83-110)
== END 2021-02-06 13:32 | disposition home or self-care (01) ==
LOC: SCSRAD 13:31
PROVIDERS: ATTEND Urology
DX: Z12.5 Encounter for screening for malignant neoplasm of prostate (principal); N20.0 Calculus of kidney; R35.0 Frequency of micturition; R81 Glycosuria
CPT/HCPCS: 36415; 74018; 80048; 81001; 87086; G0103

== ENCOUNTER 2022-07-24 13:49 | Outpatient (CLI) | payer MEDICARE | END 2022-07-24 13:50 | disposition home or self-care (01) | LOC: BICRAD 13:49 | PROVIDERS: ATTEND Urology | DX: N20.0 Calculus of kidney (principal); N28.89 Other specified disorders of kidney and ureter | CPT/HCPCS: 36415; 74018; 80048; 81001 ==

== ENCOUNTER 2023-05-22 05:59 | Day surgery (SDC) | payer MEDICARE ==
[2023-05-19 09:10] VITALS: BMI 30.5
[2023-05-19 10:26] LABS: Hematocrit 42.4 % (38.8-50.0); Hemoglobin 13.9 g/dL (13.5-17.5); Mean Corpuscular HGB CONC 32.8 g/dL (32.0-36.0); Mean Corpuscular Hemoglobin 29.6 pg (27.0-33.0); Mean Corpuscular Volume 90.4 fl (81.2-95.1); Mean Platelet Volume 11.9 fl (7.4-10.4); Platelet Count 156 10x3/uL (150-450); RBC Distribution Width 14.1 % (11.5-14.5); Red Blood Cell (RBC) Count 4.69 10x6/uL (4.32-5.72); White Blood Cell (WBC) Count 8.1 10x3/uL (3.5-10.5)
[2023-05-19 11:02] LABS: INR-International Normal Ratio 1.1; PTT 28.3 sec (22.0-33.0); Prothrombin Time 11.4 sec (9.5-12.1)
[2023-05-19 11:07] LABS: Anion Gap 12 mmol/L (10-20); BUN (Urea Nitrogen) 24 mg/dL (8.4-25.7); Calc. Creatinine Clearance 104 mL/min (70-130); Calcium 9.2 mg/dL (7.8-10.44); Carbon Dioxide 26 mmol/L (23-31); Chloride 103 mmol/L (98-107); Estimated GFR 89; Glucose 183 mg/dL (83-110); Potassium 4.2 mmol/L (3.5-5.1); Sodium 137 mmol/L (136-145)
[2023-05-22] MEDS ORDERED: Lidocaine 1% PF 5 ML VIAL ONE (07:46)
[2023-05-22] MEDS ORDERED: PROPOFOL 200 MG/20 ML VIAL ONE (07:46)
== END 2023-05-22 08:54 | disposition home or self-care (01) ==
LOC: SDC 05:59
PROVIDERS: ATTEND Internal Medicine Cardiovascular Disease
PROC: B245ZZ4 Ultrasonography of Left Heart, Transesophageal (ICD-10-PCS; principal; 2023-05-22)
DX: I48.19 Other persistent atrial fibrillation (principal); I25.10 Atherosclerotic heart disease of native coronary artery without angina pectoris; I95.9 Hypotension, unspecified; E11.9 Type 2 diabetes mellitus without complications; E78.5 Hyperlipidemia, unspecified; F41.9 Anxiety disorder, unspecified; F32.A Depression, unspecified; Z79.01 Long term (current) use of anticoagulants; Z79.899 Other long term (current) drug therapy; Z79.4 Long term (current) use of insulin; Z88.1 Allergy status to other antibiotic agents; Z88.8 Allergy status to other drugs, medicaments and biological substances; Z95.818 Presence of other cardiac implants and grafts
CPT/HCPCS: 80048; 85027; 85610; 85730; 93312; J2704

== ENCOUNTER 2024-05-02 14:21 | Outpatient (CLI) | payer MEDICARE, OTHER | END 2024-05-02 14:22 | disposition home or self-care (01) | LOC: SCSRAD 14:21 | PROVIDERS: ATTEND Urology | DX: N20.0 Calculus of kidney (principal) | CPT/HCPCS: 36415; 74018; 80048; 81001; 83036; 87086 ==

== ENCOUNTER 2024-10-04 15:01 | Outpatient (CLI) | payer OTHER, MEDICARE | END 2024-10-04 15:02 | disposition home or self-care (01) | LOC: SCSRAD 15:01 | PROVIDERS: ATTEND Family Medicine | DX: R05.9 Cough, unspecified (principal) | CPT/HCPCS: 71046 ==

== ENCOUNTER 2024-12-30 12:00 | Outpatient (CLI) | payer OTHER | END 2024-12-30 12:01 | disposition home or self-care (01) | LOC: SCSRAD 12:00 | PROVIDERS: ATTEND Family Medicine | DX: R05.9 Cough, unspecified (principal); I51.7 Cardiomegaly | CPT/HCPCS: 71046 ==